=== PATIENT | female | born 1960 | race Asian ===

== ENCOUNTER 2017-10-16 00:35 | Emergency (ER) | payer OTHER ==
[~2017-10-16] VITALS: Ht 152.4 cm; Wt 63.5 kg
[2017-10-16] MEDS ORDERED: EPINEPHrine HCL 1 MG/1 ML AMP SC ONE (01:00)
[2017-10-16] MEDS ORDERED: diphenhdrAMINE HCL 50 MG/1 ML VL IV ONE (01:00)
[2017-10-16] MEDS ORDERED: methylPREDNISolone SOD SUCC 125 MG/2 ML VL IV ONE (01:00)
[2017-10-16] MEDS ORDERED: SODIUM CHLORIDE 0.9% 1,000 ML IV ONE (01:15)
[2017-10-16] MEDS ORDERED: FAMOTIDINE (10MG/ML) 2ML VL IV ONE (01:45)
[2017-10-16] MEDS ORDERED: FAMOTIDINE 20 MG TAB PO ONE (02:30)
[2017-10-16 05:30] VITALS: BP 113/71
== END 2017-10-16 05:38 | disposition home or self-care (01) ==
LOC: ER 00:38
DX: T78.3XXA Angioneurotic edema, initial encounter (principal); T78.40XA Allergy, unspecified, initial encounter; J45.909 Unspecified asthma, uncomplicated; Y92.89 Other specified places as the place of occurrence of the external cause
CPT/HCPCS: 94761; 96361; 96372; 96374; 96375; 99285; J0171; J1200; J2930; J7030